=== PATIENT | female | born 1985 | race Caucasian/White ===

== ENCOUNTER 2019-05-02 16:52 | Inpatient (IN) | payer BC ==
[2019-05-02] MEDS ORDERED: Lidocaine 1% 50 ML MDV INJECT PRN (17:25)
[2019-05-02] MEDS ORDERED: Misoprostol 200 MCG Tab PO PRN (17:25)
[2019-05-02] MEDS ORDERED: Carboprost Tromethamine 250 MCG/1 ML Amp IM PRN (17:25)
[2019-05-02] MEDS ORDERED: Sodium Chloride 0.9% 10 ML Syringe FLUSH PRN (17:25)
[2019-05-02] MEDS ORDERED: Nalbuphine 10 MG/1 ML Vial IVPUSH PRN (17:25)
[2019-05-02] MEDS ORDERED: Ondansetron 4 MG/2 ML SDV IVPUSH PRN (17:25)
[2019-05-02] MEDS ORDERED: Sodium Chloride 0.9% 10 ML SDV IV PRN (17:25)
[2019-05-02] MEDS ORDERED: Ampicillin 2 GM in Sodium Chloride 0.9% 100 ML IV ONE (17:25)
[2019-05-02] MEDS ORDERED: Butorphanol 1 MG/ML SDV IVPUSH PRN (17:25)
[2019-05-02] MEDS ORDERED: Sodium Chloride 0.9% 2.5 ML Syringe FLUSH PRN (17:25)
[2019-05-02] MEDS ORDERED: Misoprostol 25 MCG (1/4 of 100 MCG) Tab VAG PRN (17:25)
[2019-05-02] MEDS ORDERED: Water For Irrigation,Sterile 1,000 ML Container IRR PRN (17:25)
[2019-05-02] MEDS ORDERED: Tranexamic Acid 1,000 MG in Sodium Chloride 0.9% 100 ML IV PRN (17:25)
[2019-05-02] MEDS ORDERED: Methylergonovine 0.2 MG/1 ML Amp IM PRN (17:25)
[2019-05-02] MEDS ORDERED: Terbutaline 1 MG/ML SDV SUBCUT PRN (17:25)
[2019-05-02] MEDS ORDERED: Oxytocin/0.9 % Sodium Chloride 30 UNIT/500 ML BAG IV SCH ×2 (17:30)
[2019-05-02] MEDS: Lactated Ringers 1,000 ML IV SCH ×2 (18:04→21:58)
[2019-05-02] MEDS ORDERED: Ampicillin 1 GM in Sodium Chloride 0.9% 50 ML IV SCH (21:45)
[2019-05-02] MEDS: Ampicillin 1 GM in Sodium Chloride 0.9% 50 ML IV SCH (22:03)
[2019-05-03] MEDS: Misoprostol 25 MCG (1/4 of 100 MCG) Tab VAG PRN ×2 (00:04→04:02)
[2019-05-03] MEDS: Ampicillin 1 GM in Sodium Chloride 0.9% 50 ML IV SCH ×6 (02:04→23:05)
[2019-05-03] MEDS: Lactated Ringers 1,000 ML IV SCH ×4 (05:23→22:26)
[2019-05-03] MEDS ORDERED: fentaNYL 100 MCG/2 ML SDV ONE ×2 (16:40→21:24)
[2019-05-03] MEDS ORDERED: Ropivacaine 0.2% PF 2 MG/ML 20 ML SDV ONE ×2 (16:41→21:24)
[2019-05-03] MEDS ORDERED: Ropivacaine HCl/PF 100 ML ONE (16:41)
[2019-05-03] MEDS ORDERED: ePHEDrine 50 MG/ML SDV ONE ×2 (17:27)
[2019-05-03] MEDS ORDERED: Sodium Chloride 0.9% 20 ML ONE (17:27)
--- NOTE | 2019-05-03 17:40 | PCM.PREANE ---
Preanesthetic Assessment - Procedure Proposed Procedure: RADHA - Anesthesia/Transfusion/Family Hx Anesthesia History: Prior Anesthesia Without Reaction Family History of Anesthesia Reaction: No Transfusion History: No Prior Transfusion(s) Intubation History: Intubation other than for Surgery in past Additional History: BMI 51.5 - Review of Systems General: No Symptoms Pulmonary: No Symptoms Cardiovascular: Other (Hx of chronic HTN. On Metoprolol. Current BP 145/87.) - Physical Assessment NPO Status Date: 05/03/19 NPO Status Time: 16:00 (Liquids) Height: 1.68 m Weight: 144.696 kg ASA Class: 3 Mental Status: Alert & Oriented x3 Airway Class: Mallampati = 2 Dentition: Reports: Normal Dentition Thyro-Mental Finger Breadths: 3 Mouth Opening Finger Breadths: 3 ROM/Head Extension: Full Lungs: Clear to Auscultation Cardiovascular: Regular Rate - Lab Values: Laboratory Last Values WBC 11.53 K/uL (4.0-11.0) H 05/02/19 18: RBC 4.13 M/uL (4.30-5.90) L 05/02/19 18:01 Hgb 11.8 g/dL (12.0-16.0) L 05/02/19 18:01 Hct 35.4 % (36.0-46.0) L 05/02/19 18:01 MCV 85.7 fL (80.0-98.0) 05/02/19 18:01 MCH 28.6 pg (27.0-32.0) 05/02/19 18:01 MCHC 33.3 g/dL (31.0-37.0) 05/02/19 18:01 RDW Std Deviation 40.1 fl (28.0-62.0) 05/02/19 18:01 RDW Coeff of Karla 13 % (11.0-15.0) 05/02/19 18: Plt Count 294 K/uL (150-400) 05/02/19 18:01 MPV 10.60 fL (7.40-12.00) 05/02/19 18:01 Nucleated RBC % 0.0 /100WBC 05/02/19 18:01 Nucleated RBCs # 0 K/uL 05/02/19 18:01 Blood Type A POSITIVE 05/02/19 18: Antibody Screen NEGATIVE 05/02/19 18:01 - Allergies Allergies/Adverse Reactions: Allergies Allergy/AdvReac Type Severity Reaction Status Date / Time latex Allergy Hives Verified 04/28/19 14:35 metaxalone [From Skelaxin] Allergy Hives Verified 05/07/14 10:58 - Blood Blood Available: No Product(s) Available: None - Anesthesia Plan Pre-Op Medication Ordered: None - Acknowledgements Anesthesia Type Planned: Epidural Pt an Appropriate Candidate for the Planned Anesthesia: Yes Alternatives and Risks of Anesthesia Discussed w Pt/Guardian: Yes Pt/Guardian Understands and Agrees with Anesthesia Plan: Yes Additional Comments: Discussed issues related to BMI and chronic HTN as well as general epidural procedure. Understands. ? answered. Accepts. Permit signed. will proceed. Fluid bolus in. 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: Neurological History: Reports: Other (See Below) Other Neuro History: Reynauds Psychiatric History: Reports: Depression - Infectious Disease History Infectious Disease History: Reports: Chicken Pox - Past Surgical History HEENT Surgical History: Reports: Adenoidectomy, Tonsillectomy Other HEENT Surgeries/Procedures: 04/2019 Musculoskeletal Surgical History: Reports: Other (See Below) Other Musculoskeletal Surgeries/Procedures:: radial frx repair 05/07/2014 - SUBSTANCE USE Smoking Status *Q: Former Smoker Tobacco Use Within Last Twelve Months: No Second Hand Smoke Exposure: No Recreational Drug Use History: No - HOME MEDS Home Medications: Home Meds Levomefolate/Algal Oil [Deplin-Algal Oil 15 mg Capsule] 15 mg PO DAILY 04/28/19 [History] Metoprolol Succinate [Toprol XL 50mg] 50 mg PO BEDTIME 04/28/19 [History] Omeprazole 20 mg PO DAILY 04/28/19 [History] 95/Iron Fum/Folic/Dha [ + Dha Combo Pack] 1 cap PO DAILY [History] - CURRENT (IN HOUSE) MEDS Current Meds: Current Medications Butorphanol Tartrate (Stadol) 1 mg IVPUSH Q1H PRN PRN Reason: Pain Carboprost Tromethamine (Hemabate Ds) 250 mcg IM ASDIRECTED PRN PRN Reason: Post Hemorrhage Lactated Ringer's (Ringers, Lactated) 1,000 mls @ 150 mls/hr IV ASDIRECTED PADMAJA Last Admin: 05/03/19 17:02 Dose: 150 mls/hr Oxytocin/Sodium Chloride (Oxytocin 30 Unit/500 Ml-Ns) 30 unit in 500 mls @ 999 mls/hr IV TITRATE PADMAJA Oxytocin/Sodium Chloride (Oxytocin 30 Unit/500 Ml-Ns) 30 unit in 500 mls @ 2 mls/hr IV TITRATE [facility]; Protocol Last Admin: 05/03/19 10:58 Dose: 2 munits/min, 2 mls/hr Tranexamic Acid 1,000 mg/ (Sodium Chloride) 110 mls @ 660 mls/hr IV ONETIME PRN PRN Reason: Bleeding Ampicillin Sodium 1 gm/ Sodium (Chloride) 50 mls @ 100 mls/hr IV Q4H [facility] Last Admin: 05/03/19 15:07 Dose: 100 mls/hr Lidocaine HCl (Xylocaine 1%) 50 ml INJECT ONETIME PRN PRN Reason: Laceration repair Methylergonovine Maleate (Methergine) 0.2 mg IM ASDIRECTED PRN PRN Reason: Post Hemorrhage Misoprostol (Cytotec) 200 mcg PO ONETIME PRN PRN Reason: Post Hemorrhage Misoprostol (Cytotec) 25 mcg VAG ONETIME PRN PRN Reason: Cervical Ripening Last Admin: 05/02/19 20:08 Dose: 25 mcg Misoprostol (Cytotec) 25 mcg VAG Q4H PRN PRN Reason: Cervical Ripening Last Admin: 05/03/19 04:02 Dose: 25 mcg Nalbuphine HCl (Nubain) 10 mg IVPUSH Q1H PRN PRN Reason: Pain (severe 7-10) Ondansetron HCl (Zofran) 4 mg IVPUSH Q4H PRN PRN Reason: Nausea/Vomiting Sodium Chloride (Saline Flush) 10 ml FLUSH ASDIRECTED PRN PRN Reason: Keep Vein Open Sodium Chloride (Saline Flush) 2.5 ml FLUSH ASDIRECTED PRN PRN Reason: Keep Vein Open Sodium Chloride (Normal Saline) 10 ml IV ASDIRECTED PRN PRN Reason: IV Use Sterile Water (Sterile Water For Irrigation) 1,000 ml IRR ASDIRECTED PRN PRN Reason: delivery Terbutaline Sulfate (Brethine) 0.25 mg SUBCUT ASDIRECTED PRN PRN Reason: Tacysystole Discontinued Medications Ephedrine Sulfate (Ephedrine Sulfate) Confirm Administered Dose 50 mg .ROUTE .STK-MED ONE Stop: 05/03/19 17:28 Ephedrine Sulfate (Ephedrine Sulfate) Confirm Administered Dose 50 mg .ROUTE .STK-MED ONE Stop: 05/03/19 17:28 Fentanyl (Sublimaze) Confirm Administered Dose 100 mcg .ROUTE .STK-MED ONE Stop: 05/03/19 16:41 Ampicillin Sodium 2 gm/ Sodium (Chloride) 100 mls @ 200 mls/hr IV ONETIME ONE Stop: 05/02/19 17:54 Last Admin: 05/02/19 18:04 Dose: 200 mls/hr Ropivacaine (Naropin 0.2%) Confirm Administered Dose 100 mls @ as directed .ROUTE .STK-MED ONE Stop: 05/03/19 16:42 Sodium Chloride (Normal Saline) Confirm Administered Dose 20 mls @ as directed .ROUTE .STK-MED ONE Stop: 05/03/19 17:28 Ropivacaine (Naropin 0.2%) Confirm Administered Dose 20 ml .ROUTE .STK-MED ONE Stop: 05/03/19 16:42
--- NOTE | 2019-05-03 18:19 | PCM.SN ---
- Free Text/Narrative Note: Requested for RADHA on 33 y/o , 4cm dilated, on Pitocin. Active labor. Pain 10/10. Hx chronic HTN. On metoprolol. Current BP 145/87. BMI 51.5 Discussed all aspects of procedure and issues added by BMI and HTN. Fluid bolus progressing. Permit signed. Prep with chloroprep. Skin local 6 ml 1% lido at L3-L4, best that could be assessed due to no landmarks. Epidural space ID'd on first pass via JORGE with saline/air mix through 17g Touhy needle. Reconfirmed with 3ml saline. Catheter to 9 cm without issues. Test dose negative. Occlusive drsg. Bolus with 0.2% Naropin 8ml + 100 mcg Fentanyl added. Bolus give slowly. 17:05 -17:28. Pain control good. Some issues with hypotension, resolved without vasoactive drugs. Ephedrine at bedside if needed. Infusion held for now. 17:58 BPs 117/ Ephidrine 10 mg IV. Response BPs 124/ Pain remains well controlled. Will start infusion at 6ml/hr with 4ml/q20m bolus. Started at 18:25. Doing well currently.
--- NOTE | 2019-05-03 21:58 | PCM.SN ---
- Free Text/Narrative Note: Called for increasing discomfort. FHT and VS stable. On Pitocin. Progressing slowly. Used bolus x2 without much improvement. Pain 07/08. 21:28-21:36 0.2% Naropin 5ml + 100mcg Fentanyl added given slowly. - asp. Infusion increased to 8ml/hr and bolus changed to 4ml/q15m. 21:45 Pain 04/10. 21:51 Additional 2ml 0.2% Naropin given. Doing well. VSS.
[2019-05-04] MEDS ORDERED: Acetaminophen 500 MG Tab PO PRN ×2 (00:19)
[2019-05-04] MEDS ORDERED: Witch Hazel Medicated Pads 40/Jar TOP PRN (00:19)
[2019-05-04] MEDS ORDERED: Ibuprofen 400 MG Tab PO PRN (00:19)
[2019-05-04] MEDS ORDERED: Lanolin 100% Cream 7 GM Tube TOP PRN (00:19)
[2019-05-04] MEDS ORDERED: Bisacodyl 10 MG Supp RECTAL PRN (00:19)
[2019-05-04] MEDS ORDERED: Benzocaine/Menthol 20%-0.5% Spray 78 GM Cannister TOP PRN (00:19)
[2019-05-04] MEDS ORDERED: oxyCODONE 5 MG Tab PO PRN (00:19)
--- NOTE | 2019-05-04 00:27 | PCM.OPNOTE ---
- General Post-Op/Procedure Note Date of Surgery/Procedure: 05/04/19 Operative Procedure(s): /2nd MLL repaired Findings: Viable male APGARs 8, 9 weight pending. Meconium stained amniotic fluid. Spontaneous delivery intact placenta with 3V cord. Pre Op Diagnosis: 39 week IUP. Chronic hypertension Post-Op Diagnosis: Same Anesthesia Technique: Epidural Primary Surgeon: Carine Ashley EBL in mLs: 400 Complications: none known Condition: Stable Free Text/Narrative:: Dictation [id number]
--- NOTE | 2019-05-04 03:02 | OR ---
SURGEON: Carine Ashley M.D. DATE OF PROCEDURE: 05/04/2019 PREOPERATIVE DIAGNOSES: 1. A 39-week intrauterine . 2. Chronic hypertension. POSTOPERATIVE DIAGNOSES: 1. A 39-week intrauterine . 2. Chronic hypertension. PROCEDURE: Spontaneous vaginal delivery with second-degree midline laceration repaired. ANESTHESIA: Epidural. ESTIMATED BLOOD LOSS: 400 mL. COMPLICATIONS: None known. FINDINGS: Viable male score 8 at 1 minute and 9 at 5 minutes. Weight is pending. Spontaneous delivery, intact placenta, 3-vessel cord. Meconium-stained amniotic fluid. DISPOSITION: Infant to nursery, mom in LDRP. PROCEDURE IN DETAIL: Clara is a 33-year-old G1, P0 at 39 weeks' gestational age who presents for scheduled induction of labor due to chronic hypertension which has been well controlled during the on labetalol. Upon admission, the patient was found to be 1 cm, 50% effaced, -3 station. Therefore, was initiated on Cytotec ripening, received 3 doses of this the following morning. Was then transitioned to Pitocin induction. She is group B beta strep positive, receiving ampicillin prophylaxis. Shortly after 1 p.m., the patient was found to be 2 to 3 cm, 80% effaced, -2 station. Amniotomy was performed. Meconium-stained fluid was returned. An FSE and IUPC were placed to help monitor the patient's liver pattern more easily. The patient made slow progress throughout the afternoon hours with occasional episodes of variables, especially after her epidural. She had some repetitive late decelerations which responded to position changes, IV fluid bolus, and a dose of ephedrine. heart tones then recovered to the 140s with variability. The patient began making more progress in the early evening hours. By approximately 10 p.m., she was found to be 8 cm, progressing to 9 cm within an hour and shortly thereafter, did complete 100% effaced, -2 station, began pushing efforts, pushed readily to a +3 station. I was called for delivery. Upon my arrival, the patient was placed in modified dorsal lithotomy position. Was prepped and draped in aseptic manner. With continued pushing efforts, was able to deliver 's head atraumatically spontaneously, followed by anterior shoulder, posterior shoulder, and remainder of the body. There was nuchal cord x1 noted, reduced manually. The 's oropharynx and nares were bulb suctioned. The infant was handed off to his mother with attending nursing staff at the side. After a delay, cord was clamped x2 and cut. Cord arterial, cord venous, cord blood sampling was obtained. Light pressure was applied while the placenta was delivered spontaneously intact. Vigorous fundal uterine massage was applied while 30 units Pitocin was delivered in 500 mL of fluid. Upon inspection of the cervix, vaginal sidewalls, and perineum, there was found to be fairly deep second-degree midline laceration, repaired using 3-0 Vicryl in layered procedure, first with the deeper layer, followed by a more superficial layer in the usual fashion. The patient tolerated the procedure well overall. Sponge count, instrument count was correct. The patient remained in LDRP. We will continue to monitor blood pressures closely. to nursery. LORAINE / DAO /[id number]
--- NOTE | 2019-05-04 07:24 | PCM48HPAN ---
Post Anesthesia Note - EVALUATION WITHIN 48HRS OF ANESTHETIC Vital Signs in Normal Range: Yes Patient Participated in Evaluation: Yes Respiratory Function Stable: Yes Airway Patent: Yes Cardiovascular Function Stable: Yes Hydration Status Stable: Yes Pain Control Satisfactory: Yes Nausea and Vomiting Control Satisfactory: Yes Mental Status Recovered: Yes Vital Signs: Last Vital Signs Temp 36.7 C 05/04/19 04:39 Pulse 118 H 05/04/19 04:39 Resp 16 05/04/19 04:39 BP 122/80 05/04/19 04:39 Pulse Ox 97 05/04/19 04:39 - COMMENTS/OBSERVATIONS Free Text/Narrative:: Doing well. No problems noted.
[2019-05-04] MEDS: Ibuprofen 800 MG Tab PO PRN ×2 (08:03→14:34)
[2019-05-04] MEDS: Docusate Sodium 100 MG Cap PO PRN (08:33)
[2019-05-05] MEDS: Ibuprofen 800 MG Tab PO PRN ×3 (00:08→14:36)
[2019-05-05] MEDS: Docusate Sodium 100 MG Cap PO PRN (08:53)
--- NOTE | 2019-05-05 08:55 | PCM.PNPP ---
- General Info Date of Service: 05/05/19 Functional Status: Reports: Pain Controlled, Tolerating Diet, Ambulating, Urinating - Review of Systems General: Reports: Fatigue. Denies: Fever, Weakness Pulmonary: Denies: Shortness of Breath Cardiovascular: Denies: Chest Pain, Palpitations Gastrointestinal: Denies: Abdominal Pain, Nausea, Vomiting Genitourinary: Denies: Flank Pain Musculoskeletal: Reports: No Symptoms Skin: Reports: No Symptoms Neurological: Reports: No Symptoms Psychiatric: Reports: No Symptoms - General Info Date of Service: 05/05/19 - Patient Data Vital Signs - Most Recent: Last Vital Signs Temp 36.3 C 05/05/19 04:42 Pulse 97 05/05/19 04:42 Resp 16 05/05/19 04:42 BP 134/73 05/05/19 04:42 Pulse Ox 96 05/05/19 04:42 Weight - Most Recent: 144.696 kg Lab Results - Last 24 Hours: Laboratory Results - last 24 hr 05/04/19 Range/Units 18:04 Hgb 9.6 L (12.0-16.0) g/dL Hct 28.2 L (36.0-46.0) % Med Orders - Current: Current Medications Acetaminophen (Tylenol Extra Strength) 500 mg PO Q4H PRN PRN Reason: Pain Acetaminophen (Tylenol Extra Strength) 1,000 mg PO Q4H PRN PRN Reason: Pain Benzocaine/Menthol (Dermoplast Pain Relief 20%-0.5% [place]) 78 gm TOP ASDIRECTED PRN PRN Reason: Perineal Comfort Measure Bisacodyl (Dulcolax) 10 mg RECTAL ONETIME PRN PRN Reason: Constipation Carboprost Tromethamine (Hemabate Ds) 250 mcg IM ASDIRECTED PRN PRN Reason: Post Hemorrhage Docusate Sodium (Colace) 100 mg PO BID PRN PRN Reason: Constipation Last Admin: 05/04/19 08:33 Dose: 100 mg Emollient Ointment (Lansinoh Hpa) 0 gm TOP ASDIRECTED PRN PRN Reason: Sore Nipples Lactated Ringer's (Ringers, Lactated) 1,000 mls @ 150 mls/hr IV ASDIRECTED PADMAJA Last Admin: 05/03/19 22:26 Dose: 150 mls/hr Oxytocin/Sodium Chloride (Oxytocin 30 Unit/500 Ml-Ns) 30 unit in 500 mls @ 999 mls/hr IV TITRATE PADMAJA Oxytocin/Sodium Chloride (Oxytocin 30 Unit/500 Ml-Ns) 30 unit in 500 mls @ 2 mls/hr IV TITRATE PADMAJA; Protocol Last Titration: 05/03/19 23:58 Dose: 500 munits/min, 500 mls/hr Tranexamic Acid 1,000 mg/ (Sodium Chloride) 110 mls @ 660 mls/hr IV ONETIME PRN PRN Reason: Bleeding Ibuprofen (Motrin) 400 mg PO Q4H PRN PRN Reason: Pain Ibuprofen (Motrin) 800 mg PO Q6H PRN PRN Reason: Pain Last Admin: 05/05/19 00:08 Dose: 800 mg Methylergonovine Maleate (Methergine) 0.2 mg IM ASDIRECTED PRN PRN Reason: Post Hemorrhage Ondansetron HCl (Zofran) 4 mg IVPUSH Q4H PRN PRN Reason: Nausea/Vomiting Oxycodone HCl (Oxycodone) 5 mg PO Q2H PRN PRN Reason: Pain Sodium Chloride (Saline Flush) 10 ml FLUSH ASDIRECTED PRN PRN Reason: Keep Vein Open Sodium Chloride (Saline Flush) 2.5 ml FLUSH ASDIRECTED PRN PRN Reason: Keep Vein Open Sodium Chloride (Normal Saline) 10 ml IV ASDIRECTED PRN PRN Reason: IV Use Sterile Water (Sterile Water For Irrigation) 1,000 ml IRR ASDIRECTED PRN PRN Reason: delivery Witch Daria (Tucks) 1 pad TOP ASDIRECTED PRN PRN Reason: comfort care Discontinued Medications Butorphanol Tartrate (Stadol) 1 mg IVPUSH Q1H PRN PRN Reason: Pain Ephedrine Sulfate (Ephedrine Sulfate) Confirm Administered Dose 50 mg .ROUTE .STK-MED ONE Stop: 05/03/19 17:28 Ephedrine Sulfate (Ephedrine Sulfate) Confirm Administered Dose 50 mg .ROUTE .STK-MED ONE Stop: 05/03/19 17:28 Fentanyl (Sublimaze) Confirm Administered Dose 100 mcg .ROUTE .STK-MED ONE Stop: 05/03/19 16:41 Last Admin: 05/04/19 19:32 Dose: Not Given Fentanyl (Sublimaze) Confirm Administered Dose 100 mcg .ROUTE .STK-MED ONE Stop: 05/03/19 21:25 Last Admin: 05/04/19 19:32 Dose: Not Given Ampicillin Sodium 2 gm/ Sodium (Chloride) 100 mls @ 200 mls/hr IV ONETIME ONE Stop: 05/02/19 17:54 Last Admin: 05/02/19 18:04 Dose: 200 mls/hr Ampicillin Sodium 1 gm/ Sodium (Chloride) 50 mls @ 100 mls/hr IV Q4H PADMAJA Last Admin: 05/03/19 23:05 Dose: 100 mls/hr Ropivacaine (Naropin 0.2%) Confirm Administered Dose 100 mls @ as directed .ROUTE .STK-MED ONE Stop: 05/03/19 16:42 Last Admin: 05/04/19 19:32 Dose: Not Given Sodium Chloride (Normal Saline) Confirm Administered Dose 20 mls @ as directed .ROUTE .STK-MED ONE Stop: 05/03/19 17:28 Lidocaine HCl (Xylocaine 1%) 50 ml INJECT ONETIME PRN PRN Reason: Laceration repair Misoprostol (Cytotec) 200 mcg PO ONETIME PRN PRN Reason: Post Hemorrhage Misoprostol (Cytotec) 25 mcg VAG ONETIME PRN PRN Reason: Cervical Ripening Last Admin: 05/02/19 20:08 Dose: 25 mcg Misoprostol (Cytotec) 25 mcg VAG Q4H PRN PRN Reason: Cervical Ripening Last Admin: 05/03/19 04:02 Dose: 25 mcg Nalbuphine HCl (Nubain) 10 mg IVPUSH Q1H PRN PRN Reason: Pain (severe 7-10) Ropivacaine (Naropin 0.2%) Confirm Administered Dose 20 ml .ROUTE .STK-MED ONE Stop: 05/03/19 16:42 Last Admin: 05/04/19 19:32 Dose: Not Given Ropivacaine (Naropin 0.2%) Confirm Administered Dose 20 ml .ROUTE .STK-MED ONE Stop: 05/03/19 21:25 Last Admin: 05/04/19 19:32 Dose: Not Given Terbutaline Sulfate (Brethine) 0.25 mg SUBCUT ASDIRECTED PRN PRN Reason: Tacysystole - Infant Interaction Support Person: Significant Other - Recovery Exam Fundal Tone: Firm Fundal Level: 1 Fingerbreadths Below Umbilicus Fundal Placement: Midline Lochia Amount: Small Lochia Color: Rubra/Red Perineum Description: Edematous Episiotomy/Laceration: Approximated Bladder Status: Voiding Urinary Elimination: Voided - Exam General: Alert, Oriented Lungs: Normal Respiratory Effort Cardiovascular: Regular Rate, Regular Rhythm GI/Abdominal Exam: Normal Bowel Sounds, Soft Extremities: Pedal Edema (1+). No: Teodora's Sign Skin: Warm, Dry, Intact Psy/Mental Status: Alert, Normal Affect, Normal Mood - Problem List & Annotations (1) Vaginal delivery SNOMED Code(s): 486228393 Code(s): O80 - ENCOUNTER FOR FULL-TERM UNCOMPLICATED DELIVERY Status: Acute Current Visit: Yes - Problem List Review Problem List Initiated/Reviewed/Updated: Yes - My Orders Last 24 Hours: My Active Orders 05/05/19 08:53 Ready for Discharge [RC] PER UNIT ROUTINE - Assessment Assessment:: PPD 1 status post - Plan Plan:: Patient doing well overall, working with . Would like to go home today. VS and labs reassuring. Discharge to home. Continue labetalol as prescribed. Follow up at [facility] 6 weeks. Discharge instructions reviewed.
[2019-05-05 09:10] VITALS: BP 135/81; PULSE 87
== END 2019-05-05 16:00 | disposition home or self-care (01) | DRG 560 ==
LOC: MW.OB 16:52 → OBSVTOIN 05-03 23:55 → MW.OB 05-04 04:52
PROVIDERS: ADMIT Obstetrics & Gynecology; ATTEND Obstetrics & Gynecology
PROC: 10E0XZZ Delivery of Products of Conception, External Approach (ICD-10-PCS; principal; 2019-05-04)
PROC: 10H07YZ Insertion of Other Device into Products of Conception, Via Natural or Artificial Opening (ICD-10-PCS; 2019-05-04)
PROC: 10907ZC Drainage of Amniotic Fluid, Therapeutic from Products of Conception, Via Natural or Artificial Opening (ICD-10-PCS; 2019-05-04)
PROC: 3E0R3BZ Introduction of Anesthetic Agent into Spinal Canal, Percutaneous Approach (ICD-10-PCS; 2019-05-04)
PROC: 00HU33Z Insertion of Infusion Device into Spinal Canal, Percutaneous Approach (ICD-10-PCS; 2019-05-04)
PROC: 0KQM0ZZ Repair Perineum Muscle, Open Approach (ICD-10-PCS; 2019-05-04)
PROC: 3E033VJ Introduction of Other Hormone into Peripheral Vein, Percutaneous Approach (ICD-10-PCS; 2019-05-04)
DX: O16.4 Unspecified maternal hypertension, complicating childbirth (principal); O77.0 Labor and delivery complicated by meconium in amniotic fluid; Z37.0 Single live birth; O76 Abnormality in fetal heart rate and rhythm complicating labor and delivery; O70.1 Second degree perineal laceration during delivery; O99.824 Streptococcus B carrier state complicating childbirth; O69.81X0 Labor and delivery complicated by cord around neck, without compression, not applicable or unspecified; Z79.899 Other long term (current) drug therapy; Z91.040 Latex allergy status; Z88.8 Allergy status to other drugs, medicaments and biological substances; Z90.89 Acquired absence of other organs; Z87.891 Personal history of nicotine dependence; Z3A.39 39 weeks gestation of pregnancy
CPT/HCPCS: 36415; 51702; 59025; 59409; 82803; 85014; 85018; 85027; 86592; 86593; 86850; 86900; 86901; A9270-GY; J0290; J2590; J7050; J7120